=== PATIENT | male | born 1980 | race Caucasian/White ===

== ENCOUNTER 2019-01-09 14:22 | Emergency (ER) | payer OTHER ==
[~2019-01-09] VITALS: Ht 177.8 cm; Wt 90.7 kg
[~2019-01-09 14:22] MED LIST: ACYC800 PO; ALBU90OI6 INH; AMOCLA875 PO; AMOX1XR PO; AMOX500 PO; BENZ100A PO; CEPH500 PO; CYCL10 PO; DIAZ5 PO; DULO60 PO; ESCI20 PO; HYDACE5 PO; HYDROXYCUT; IBUP800 PO; METPHE20 PO; NAPR500 PO; OXYACE5T PO; PARO10 PO; PENVK500 PO; PRED20 PO; PSEU30 PO; RXPROM25 PO; SERT100 PO
[2019-01-09] MEDS ORDERED: SERT100 (14:40)
[2019-01-09] MEDS ORDERED: Ultram50 MG PO (15:36)
[2019-01-09] MEDS ORDERED: PRED10 PO (15:36)
== END 2019-01-09 15:45 | disposition home or self-care (01) ==
LOC: ER 14:22
DX: M54.5 Low back pain (principal); I10 Essential (primary) hypertension; F41.9 Anxiety disorder, unspecified; F32.9 Major depressive disorder, single episode, unspecified; Z79.899 Other long term (current) drug therapy
CPT/HCPCS: 96372; 99283-25; J1885

== ENCOUNTER 2019-01-22 12:45 | Emergency (ER) | payer OTHER ==
[~2019-01-22] VITALS: Ht 177.8 cm; Wt 93.0 kg
[~2019-01-22 12:45] MED LIST changes: +PRED10 PO; +SERT100; +Ultram50 MG PO
== END 2019-01-22 14:36 | disposition home or self-care (01) ==
LOC: ER 12:45
DX: F41.9 Anxiety disorder, unspecified (principal); R07.89 Other chest pain; I10 Essential (primary) hypertension
CPT/HCPCS: 71046; 93005; 93010; 99283-25

== ENCOUNTER 2019-04-17 16:32 | Emergency (ER) | payer OTHER ==
[~2019-04-17] VITALS: Ht 177.8 cm; Wt 88.5 kg
[2019-04-17] MEDS ORDERED: DESV50 PO (16:47)
[2019-04-17] MEDS ORDERED: SILDENAFIL20 MG PO (16:47)
[2019-04-17] MEDS ORDERED: TADALAFIL5 M1 PO (16:47)
[2019-04-17] MEDS ORDERED: AMPDEX10 (16:47)
[2019-04-17] MEDS ORDERED: Prednisone20 MG PO (18:08)
[2019-04-17] MEDS ORDERED: ALBU90OI INH (18:08)
[2019-04-17] MEDS ORDERED: Aerochamber1 EACH INH (18:08)
== END 2019-04-17 18:11 | disposition home or self-care (01) ==
LOC: ER 16:32
DX: J06.9 Acute upper respiratory infection, unspecified (principal); I10 Essential (primary) hypertension; F32.9 Major depressive disorder, single episode, unspecified; F41.9 Anxiety disorder, unspecified; F90.9 Attention-deficit hyperactivity disorder, unspecified type; F17.210 Nicotine dependence, cigarettes, uncomplicated; Z79.52 Long term (current) use of systemic steroids
CPT/HCPCS: 71046; 99283-25

== ENCOUNTER 2019-04-28 12:02 | Emergency (ER) | payer OTHER ==
[~2019-04-28] VITALS: Ht 177.8 cm; Wt 83.9 kg
[~2019-04-28 12:02] MED LIST changes: +ALBU90OI INH; +AMPDEX10; +Aerochamber1 EACH INH; +DESV50 PO; +Prednisone20 MG PO; +SILDENAFIL20 MG PO; +TADALAFIL5 M1 PO
== END 2019-04-28 14:53 | disposition left against medical advice (07) ==
LOC: ER 12:02
DX: Z53.21 Procedure and treatment not carried out due to patient leaving prior to being seen by health care provider (principal)
CPT/HCPCS: 93005; 93010

== ENCOUNTER 2019-05-06 10:51 | Observation (INO) | payer OTHER ==
[~2019-05-06] VITALS: Ht 177.8 cm; Wt 86.2 kg
[2019-05-06 16:17] LABS: BASOPHILS ABSOLUTE AUTO 0.09 K/mm3 (0.00-0.23); BASOPHILS PERCENT AUTO 1 % (0-2); EOSINOPHILS ABSOLUTE AUTO 0.27 K/mm3 (0.00-0.68); EOSINOPHILS PERCENT AUTO 3 % (0-6); Hematocrit 38.3 % (37.0-53.0); Hemoglobin 12.6 g/dL (13.5-17.5); IMMATURE GRAN PERCENT AUTO 1 % (0-1); LYMPHOCYTES ABSOLUTE AUTO 2.02 K/mm3 (0.84-5.20); LYMPHOCYTES PERCENT AUTO 19 % (21-46); MONOCYTES ABSOLUTE AUTO 0.77 K/mm3 (0.16-1.47); MONOCYTES PERCENT AUTO 7 % (4-13); Mean Corpuscular HGB 29.8 pg (26.0-34.0); Mean Corpuscular HGB Conc 32.9 g/dL (31.5-36.5); Mean Corpuscular Volume 91 fL (80-100); Mean Platelet Volume 9.2 fL (9.1-12.4); NEUTROPHILS ABSOLUTE AUTO 7.27 K/mm3 (1.96-9.15); NEUTROPHILS PERCENT AUTO 69 % (41-73); Platelet Count 378 K/mm3 (150-400); RDW Coefficient Variation 12.9 % (11.7-14.2); RDW Standard Deviation 42.5 fL (35.1-46.3); Red Blood Cell Count 4.23 M/mm3 (4.30-5.90); White Blood Cell Count 10.52 K/mm3 (4.00-11.30)
[2019-05-06 16:45] LABS: Ethanol (Alcohol), Blood, Med <3 mg/dL
[2019-05-06 16:46] LABS: Acetaminophen, Random <2.0 ug/mL (10.0-30.0); Salicylate <1.7 mg/dL (2.8-20.0)
[2019-05-06 16:50] LABS: Alanine Aminotransfer (ALT/SGP 33 U/L (12-78); Albumin, Blood 2.9 g/dL (3.4-5.0); Albumin/Globulin Ratio 0.9 (0.8-1.8); Alk Phos 51 U/L (50-136); Anion Gap 5 mmol/L (6-16); Aspartate Aminotrans (AST/SGOT 14 U/L (12-37); Bilirubin, Total 0.2 mg/dL (0.1-1.0); Blood Urea Nitrogen 19 mg/dL (8-24); Bun/Creatinine Ratio 19.5 (12.0-20.0); CO2, Blood 27 mmol/L (21-32); Calcium, Blood 8.1 mg/dL (8.5-10.1); Chloride, Blood 107 mmol/L (98-108); Creatinine, Blood 0.97 mg/dL (0.60-1.20); Globulin, Blood 3.3 g/dL (2.2-4.0); Glomerular Filtration Rate >60 (60-); Glucose, Blood 95 mg/dL (70-99); Potassium, Blood 4.3 mmol/L (3.5-5.5); Sodium, Blood 139 mmol/L (136-145); Total Protein, Blood 6.2 g/dL (6.4-8.2)
[2019-05-06 20:51] LABS: Source, Urine Voided
[2019-05-06 20:56] LABS: Bilirubin, Urine Neg (Neg); Blood, Urine Neg (Neg); Glucose Qualitative, Urine Neg (Neg); Ketones, Urine Neg (Neg); Leukocyte Esterase, Urine Neg (Neg); Nitrite, Urine Neg (Neg); Protein, Urine Neg (Neg); Specific Gravity, Urine 1.015 (1.003-1.022); Urobilinogen, Urine NORM (Normal)
[2019-05-06 21:00] LABS: Appearance, Urine Clear (Clear); Color, Urine Yellow (P-Yellow)
[2019-05-06 21:07] LABS: U Amphetamine Screen Not Detected; U Barbituate Screen Not Detected; U Cocaine Screen Not Detected; U Methamphetamine Screen Not Detected
[2019-05-06 21:08] LABS: U Benzodiazapine Screen DETECTED; U Buprenorphine Screen Not Detected; U Cannabinoids Screen DETECTED; U Methadone Screen Not Detected; U Opiates Screen Not Detected; U Oxycodone Screen Not Detected; U Phencyclidine Screen Not Detected; U Propoxyphene Screen Not Detected
== END 2019-05-07 12:10 | disposition home or self-care (01) ==
LOC: ER 10:51 → EOR 10:52
PROVIDERS: ADMIT Emergency Medicine
DX: F33.2 Major depressive disorder, recurrent severe without psychotic features (principal); F41.9 Anxiety disorder, unspecified; F10.10 Alcohol abuse, uncomplicated; F15.10 Other stimulant abuse, uncomplicated; F12.10 Cannabis abuse, uncomplicated; I10 Essential (primary) hypertension; G89.29 Other chronic pain; M54.9 Dorsalgia, unspecified; F17.210 Nicotine dependence, cigarettes, uncomplicated; Z79.899 Other long term (current) drug therapy; Z79.52 Long term (current) use of systemic steroids
CPT/HCPCS: 80053; 81003; 85025; 99285; G0378; G0480; Q3014

== ENCOUNTER 2020-10-22 16:53 | Emergency (ER) | payer OTHER, BC ==
[~2020-10-22] VITALS: Ht 177.8 cm; Wt 90.7 kg
[2020-10-22] MEDS ORDERED: BUPR100ER PO (18:18)
[2020-10-22] MEDS ORDERED: BUPRENORPHN-NA1 EAC2 SL (18:18)
[2020-10-22] MEDS ORDERED: HYDPAM25 PO (18:56)
== END 2020-10-22 19:56 | disposition home or self-care (01) ==
LOC: ER 16:53
DX: S61.201A Unspecified open wound of left index finger without damage to nail, initial encounter (principal); I10 Essential (primary) hypertension; W23.0XXA Caught, crushed, jammed, or pinched between moving objects, initial encounter
CPT/HCPCS: 73140; 99283-25; A9270

== ENCOUNTER 2023-02-20 11:25 | Emergency (ER) | payer OTHER ==
[~2023-02-20] VITALS: Ht 177.8 cm; Wt 95.7 kg
[~2023-02-20 11:25] MED LIST changes: +BUPR100ER PO; +BUPRENORPHN-NA1 EAC2 SL; +HYDPAM25 PO
[2023-02-20 11:31] VITALS: BP 171/90
[2023-02-20] MEDS ORDERED: GABA300 PO ×2 (11:35→11:57)
[2023-02-20] MEDS ORDERED: Budeprion Xl300 MG PO (11:57)
== END 2023-02-20 12:09 | disposition home or self-care (01) ==
LOC: ER 11:25
DX: Z76.0 Encounter for issue of repeat prescription (principal); Z79.899 Other long term (current) drug therapy; I10 Essential (primary) hypertension
CPT/HCPCS: 99281

== ENCOUNTER 2023-05-12 18:47 | Emergency (ER) | payer OTHER ==
[~2023-05-12] VITALS: Ht 177.8 cm; Wt 90.7 kg
[~2023-05-12 18:47] MED LIST changes: +Budeprion Xl300 MG PO; +GABA300 PO
[2023-05-12] MEDS ORDERED: BUPROPION XL150 M1 PO (19:36)
[2023-05-12] MEDS ORDERED: HYDR1TAB94 PO (21:35)
[2023-05-12 22:04] VITALS: BP 152/91
== END 2023-05-12 22:05 | disposition home or self-care (01) ==
LOC: ER 18:47
DX: T24.202A Burn of second degree of unspecified site of left lower limb, except ankle and foot, initial encounter (principal); T31.0 Burns involving less than 10% of body surface; X11.8XXA Contact with other hot tap-water, initial encounter; Z79.899 Other long term (current) drug therapy; I10 Essential (primary) hypertension
CPT/HCPCS: 96372; 99283-25; J1885

== ENCOUNTER 2023-07-16 13:20 | Emergency (ER) | payer OTHER ==
[~2023-07-16] VITALS: Ht 177.8 cm; Wt 95.2 kg
[~2023-07-16 13:20] MED LIST changes: +BUPROPION XL150 M1 PO; +HYDR1TAB94 PO
[2023-07-16 13:29] VITALS: BP 157/107
[2023-07-16] MEDS ORDERED: Mupirocin22 GM TOP (13:50)
[2023-07-16] MEDS ORDERED: CEPH500 PO (13:50)
== END 2023-07-16 14:04 | disposition home or self-care (01) ==
LOC: ER 13:20
DX: L03.116 Cellulitis of left lower limb (principal); T24.032A Burn of unspecified degree of left lower leg, initial encounter; I10 Essential (primary) hypertension; X11.8XXA Contact with other hot tap-water, initial encounter; Z87.891 Personal history of nicotine dependence
CPT/HCPCS: 99282

== ENCOUNTER 2023-08-10 18:16 | Emergency (ER) | payer OTHER ==
[~2023-08-10] VITALS: Ht 177.8 cm; Wt 99.8 kg
[~2023-08-10 18:16] MED LIST changes: +Mupirocin22 GM TOP
[2023-08-10 18:21] VITALS: BP 152/107
[2023-08-10] MEDS ORDERED: CEPH500 PO (18:28)
== END 2023-08-10 18:36 | disposition home or self-care (01) ==
LOC: ER 18:16
DX: T24.002D Burn of unspecified degree of unspecified site of left lower limb, except ankle and foot, subsequent encounter (principal); L03.116 Cellulitis of left lower limb; Z79.899 Other long term (current) drug therapy; I10 Essential (primary) hypertension
CPT/HCPCS: 99282; A9270

== ENCOUNTER 2023-08-29 18:19 | Emergency (ER) | payer OTHER ==
[~2023-08-29] VITALS: Ht 177.8 cm; Wt 99.8 kg
[2023-08-29 18:41] VITALS: BP 159/105
[2023-08-29] MEDS ORDERED: CEPH500 PO (19:26)
== END 2023-08-29 19:42 | disposition home or self-care (01) ==
LOC: ER 18:19
DX: S81.802D Unspecified open wound, left lower leg, subsequent encounter (principal); X58.XXXD Exposure to other specified factors, subsequent encounter; L08.9 Local infection of the skin and subcutaneous tissue, unspecified; I10 Essential (primary) hypertension; F90.9 Attention-deficit hyperactivity disorder, unspecified type; Z79.899 Other long term (current) drug therapy
CPT/HCPCS: 99282

== ENCOUNTER 2023-10-01 04:15 | Day surgery (SDC) | payer OTHER ==
[2023-10-01] MEDS ORDERED: Silver Sulfadiazine 1% Cream 25 APPLIC/25 GM Tube ONE (09:37)
== END 2023-10-01 22:43 | disposition home or self-care (01) ==
LOC: WOUND 04:15
DX: T24.232A Burn of second degree of left lower leg, initial encounter (principal)
CPT/HCPCS: A9270

== ENCOUNTER 2023-11-05 04:00 | Day surgery (SDC) | payer OTHER | END 2023-11-05 23:18 | disposition home or self-care (01) | LOC: WOUND 04:00 | DX: T24.202D Burn of second degree of unspecified site of left lower limb, except ankle and foot, subsequent encounter (principal); X08.8XXD Exposure to other specified smoke, fire and flames, subsequent encounter | CPT/HCPCS: G0463 ==

== ENCOUNTER 2023-11-12 00:22 | Day surgery (SDC) | payer OTHER | END 2023-11-12 22:43 | disposition home or self-care (01) | LOC: WOUND 00:22 | DX: T24.302D Burn of third degree of unspecified site of left lower limb, except ankle and foot, subsequent encounter (principal); X12.XXXD Contact with other hot fluids, subsequent encounter ==

== ENCOUNTER 2023-11-19 04:00 | Day surgery (SDC) | payer OTHER | END 2023-11-19 22:53 | disposition home or self-care (01) | LOC: WOUND 04:00 | DX: T24.202D Burn of second degree of unspecified site of left lower limb, except ankle and foot, subsequent encounter (principal); X11.8XXD Contact with other hot tap-water, subsequent encounter ==

== ENCOUNTER 2023-12-31 04:07 | Day surgery (SDC) | payer OTHER | END 2023-12-31 22:59 | disposition home or self-care (01) | LOC: WOUND 04:07 | DX: T24.202D Burn of second degree of unspecified site of left lower limb, except ankle and foot, subsequent encounter (principal) | CPT/HCPCS: G0463 ==

== ENCOUNTER 2024-03-02 16:11 | Emergency (ER) | payer OTHER ==
[~2024-03-02] VITALS: Ht 177.8 cm; Wt 108.9 kg
[~2024-03-02 16:11] MED LIST changes: +Monodox100 MG PO; +NEURONTIN300 MG PO; +TRIDERM28.4 GM TOP
[2024-03-02 16:35] VITALS: BP 123/91
[2024-03-02] MEDS ORDERED: Bactrim Ds Tab1 EACH PO (16:38)
[2024-03-02] MEDS ORDERED: Cephalexin Monohydrate 500 MG Cap PO ONE (16:40)
[2024-03-02] MEDS ORDERED: Trimethoprim/Sulfamethoxazole DS Tab PO ONE (16:40)
== END 2024-03-02 16:52 | disposition home or self-care (01) ==
LOC: ER 16:11
DX: L03.116 Cellulitis of left lower limb (principal); I10 Essential (primary) hypertension; Z79.899 Other long term (current) drug therapy
CPT/HCPCS: 99283; A9270

== ENCOUNTER 2024-03-04 16:34 | Emergency (ER) | payer OTHER ==
[~2024-03-04] VITALS: Ht 203.2 cm; Wt 108.9 kg
[~2024-03-04 16:34] MED LIST changes: +Bactrim Ds Tab1 EACH PO
[2024-03-04 16:45] VITALS: BP 168/103
[2024-03-04] MEDS ORDERED: CeFAZolin Sodium 1000 mg Vial IM ONE (17:15)
== END 2024-03-04 17:26 | disposition home or self-care (01) ==
LOC: ER 16:34
DX: L03.116 Cellulitis of left lower limb (principal); I10 Essential (primary) hypertension; Z79.899 Other long term (current) drug therapy
CPT/HCPCS: 96372; 99283-25; J0690

== ENCOUNTER 2024-08-09 00:52 | Emergency (ER) | payer OTHER ==
[~2024-08-09] VITALS: Ht 177.8 cm; Wt 108.9 kg
[2024-08-09 01:13] LABS: BASOPHILS ABSOLUTE AUTO 0.08 K/mm3 (0.00-0.23); BASOPHILS PERCENT AUTO 1 % (0-2); EOSINOPHILS ABSOLUTE AUTO 0.39 K/mm3 (0.00-0.68); EOSINOPHILS PERCENT AUTO 5 % (0-6); Hematocrit 37.2 % (37.0-53.0); IMMATURE GRAN ABSOLUTE AUTO 0.02 K/mm3 (0.00-0.10); IMMATURE GRAN PERCENT AUTO 0 % (0-1); LYMPHOCYTES ABSOLUTE AUTO 3.47 K/mm3 (0.84-5.20); LYMPHOCYTES PERCENT AUTO 47 % (21-46); MONOCYTES ABSOLUTE AUTO 0.88 K/mm3 (0.16-1.47); MONOCYTES PERCENT AUTO 12 % (4-13); Mean Corpuscular HGB 30.4 pg (26.0-34.0); Mean Corpuscular HGB Conc 34.9 g/dL (31.5-36.5); Mean Corpuscular Volume 87 fL (80-100); Mean Platelet Volume 8.6 fL (9.1-12.4); NEUTROPHILS ABSOLUTE AUTO 2.57 K/mm3 (1.96-9.15); NEUTROPHILS PERCENT AUTO 35 % (41-73); Platelet Count 337 K/mm3 (150-400); RDW Coefficient Variation 15.9 % (11.7-14.2); RDW Standard Deviation 48.3 fL (35.1-46.3); Red Blood Cell Count 4.28 M/mm3 (4.30-5.90); White Blood Cell Count 7.41 K/mm3 (4.00-11.30)
[2024-08-09 01:25] LABS: Albumin, Blood 3.7 g/dL (3.4-5.0); Albumin/Globulin Ratio 0.9 (0.8-1.8); Bilirubin, Total 0.6 mg/dL (0.1-1.0); Bun/Creatinine Ratio 18.9 (12.0-20.0); Calcium, Blood 8.9 mg/dL (8.5-10.1); Creatinine, Blood 1.11 mg/dL (0.60-1.20); Potassium, Blood 3.5 mmol/L (3.5-5.5); Total Protein, Blood 7.7 g/dL (6.4-8.2)
[2024-08-09] MEDS ORDERED: Ondansetron HCl 2 MG / ML 2ML Vial IV ONE (01:35)
[2024-08-09 02:45] VITALS: BP 128/81
[2024-08-09] MEDS ORDERED: NARCAN4 M1 (02:46)
== END 2024-08-09 02:59 | disposition home or self-care (01) ==
LOC: ER 00:52
PROVIDERS: Emergency Medicine
DX: T40.2X1A Poisoning by other opioids, accidental (unintentional), initial encounter (principal); I10 Essential (primary) hypertension; Z79.899 Other long term (current) drug therapy
CPT/HCPCS: 80053; 85025; 93005; 93010; 96374; 99284-25; J2405

== ENCOUNTER 2025-03-16 04:33 | Emergency (ER) | payer OTHER ==
[~2025-03-16] VITALS: Ht 177.8 cm; Wt 95.2 kg
[~2025-03-16 04:33] MED LIST changes: +NARCAN4 M1
[2025-03-16 04:49] VITALS: BP 163/119
[2025-03-16] MEDS ORDERED: HYDHCL25 PO (07:14)
== END 2025-03-16 05:30 | disposition home or self-care (01) ==
LOC: ER 04:33
DX: F41.9 Anxiety disorder, unspecified (principal); R41.840 Attention and concentration deficit; I10 Essential (primary) hypertension; Z79.899 Other long term (current) drug therapy
CPT/HCPCS: 99282

== ENCOUNTER 2025-03-22 20:42 | Observation (INO) | payer OTHER ==
[~2025-03-22] VITALS: Ht 177.8 cm; Wt 95.2 kg
[~2025-03-22 20:42] MED LIST changes: +HYDHCL25 PO
[2025-03-22 21:44] VITALS: BP 168/100
[2025-03-23] MEDS ORDERED: ESCI10 PO (00:17)
[2025-03-23] MEDS ORDERED: Amphetamine Sal20 MG PO (00:18)
[2025-03-23] MEDS ORDERED: Amphet Asp/Amphet/D-Amphet 5 MG Tab PO SCH (09:15)
== END 2025-03-23 09:50 | disposition left against medical advice (07) ==
LOC: ER 20:42 → EOR 20:43
PROVIDERS: ADMIT Emergency Medicine
DX: R45.851 Suicidal ideations (principal); F32.A Depression, unspecified; F41.9 Anxiety disorder, unspecified; I10 Essential (primary) hypertension; Z79.899 Other long term (current) drug therapy
CPT/HCPCS: 81003; 93005; 93010; 99285-25; A9270; G0378

== ENCOUNTER 2025-04-09 00:29 | Emergency (ER) | payer OTHER ==
[~2025-04-09] VITALS: Ht 167.6 cm; Wt 83.9 kg
[~2025-04-09 00:29] MED LIST changes: +Amphetamine Sal20 MG PO; +ESCI10 PO
[2025-04-09 00:52] VITALS: BP 156/110
== END 2025-04-09 01:24 | disposition home or self-care (01) ==
LOC: ER 00:29
DX: S39.012A Strain of muscle, fascia and tendon of lower back, initial encounter (principal); V89.2XXA Person injured in unspecified motor-vehicle accident, traffic, initial encounter; Z79.899 Other long term (current) drug therapy
CPT/HCPCS: 99283-25